=== PATIENT | female | born 1985 | race Caucasian/White ===

== ENCOUNTER 2016-09-15 12:06 | Outpatient (CLI) | payer BC ==
[~2016-09-15] VITALS: Ht 162.6 cm; Wt 99.8 kg
[~2016-09-15 12:06] MED LIST: ACHYD1T PO; DCS100C PO; HYDR-3720 PO; IBP800T PO; PREN1TAB39 PO
[2016-09-15] MEDS ORDERED: PHEN-452 PO (14:00)
[2016-09-15] MEDS ORDERED: DULO30CA48 PO (14:00)
== END 2016-09-15 14:04 ==
LOC: PREOP 12:06
PROVIDERS: ATTEND Surgery
DX: Z01.818 Encounter for other preprocedural examination (principal); K42.9 Umbilical hernia without obstruction or gangrene

== ENCOUNTER 2016-09-22 07:02 | Day surgery (SDC) | payer BC, OTHER ==
[~2016-09-22] VITALS: Ht 162.6 cm; Wt 99.8 kg
[~2016-09-22 07:02] MED LIST changes: +DULO30CA48 PO; +PHEN-452 PO
[2016-09-22] MEDS ORDERED: ceFAZolin 2 GM/NS 50 ML IV ONE (07:15)
[2016-09-22] MEDS ORDERED: LIDOCAINE/EPI 1%-1:100,000 (XYLOCAINE) 20ML ONE (07:25)
[2016-09-22] MEDS ORDERED: MIDAZOLAM 2 MG/2 ML (VERSED) VIAL IV ONE (07:45)
[2016-09-22 08:31] VITALS: BP 136/82
--- NOTE | 2016-09-22 08:38 | Progress Note-Pre Operative ---
Pre-Operative Progress Note H&P Reviewed The H&P was reviewed, patient examined and no changes noted. Date H&P Reviewed: Sep 22, 2016 Time H&P Reviewed: 08:34 Pre-Operative Diagnosis: incarcerated [facility] BELEN VARELA DO Sep 22, 2016 08:38
[2016-09-22] MEDS ORDERED: ROCURONIUM 50 MG/5 ML (ZEMURON) VIAL IV ONE (08:39)
[2016-09-22] MEDS ORDERED: proPOfol 200 MG/20 ML (DIPRIVAN) VIAL IV ONE (08:39)
[2016-09-22] MEDS ORDERED: fentaNYL INJECTION 250 MCG/5 ML AMP ONE (08:39)
[2016-09-22] MEDS ORDERED: DEXAMETHASONE PF 10 MG/ML (DECADRON) VIAL ONE (08:39)
[2016-09-22] MEDS ORDERED: ONDANSETRON 4 MG/2 ML (SDV) Z0FRAN ONE (08:39)
[2016-09-22] MEDS ORDERED: LIDOCAINE PF 2% 10 ML (XYLOCAINE) AMP ONE (08:39)
[2016-09-22] MEDS ORDERED: LACTATED RINGERS 1,000 ML IV ONE ×2 (08:40→10:12)
[2016-09-22] MEDS ORDERED: SEVOFLURANE (ULTANE) 15 ML INHAL SOLN ONE ×4 (08:40→10:12)
[2016-09-22] MEDS: LACTATED RINGERS 1,000 ML IV PRN ×2 (08:52→09:57)
[2016-09-22] MEDS ORDERED: GLYCOPYRROLATE 0.2 MG/ML (ROBINUL) 2 ML VIAL ONE (10:12)
[2016-09-22] MEDS ORDERED: NEOSTIGMINE (BLOXIVERZ ) 1 MG/1ML 10 ML VIAL ONE (10:12)
--- NOTE | 2016-09-22 10:22 | Progress Note-Post Operative ---
Post-Operative Progess Note Surgeon (s)/Mender Hand (s) Surgeon BELEN VARELA DO Mender Hand: Radha Pre-Operative Diagnosis INCARCERATED UMBILICAL HERNIA Post-Operative Diagnosis same Post-Op Procedure Note Date of Procedure: Sep 22, 2016 Name of Procedure Performed: Lap [facility]H with mesh Description of the Procedure: lap [facility] with mesh Findings of the Procedure incarcerated [facility] Anesthesia Type GET Estimated blood loss (mL): scant Specimen(s) collected/removed hernia sac, not sent to pathology BELEN VARELA DO Sep 22, 2016 10:22
[2016-09-22] MEDS ORDERED: HYDR-3820 PO (10:23)
--- NOTE | 2016-09-22 10:25 | Discharge Inst-Surgical ---
Discharge Inst-Surgical Depart Medication/Instructions New, Converted or Re-Newed RX: RX Given to Pt/Family Patient Instructions Follow up Appt: Make appointment for 1 week. [phone] -Instructions: No lifting greater than 10 pounds. No strenuous activity. May shower in 24 hours, no tub bath or soaking. Use incentive spirometer at home as directed. No Smoking Skin/Wound Care: May remove band-aids in am. Symptoms to Report: Appetite Changes, Extremity Discoloration, Numbness/Tingling, Swelling Increased , Bleeding Excessive, Eyesight Changes, Pain Increased, Urine Color Change, Constipation(Persistent), Fever over 101 degree F, Pain/Pressure in chest, Urinating Difficulty, Cough Up/Vomit Blood, Heart Beat -Irreg/Pounding, Pain/ Pressure in jaw, Vaginal Bleeding Increase, Cramps in feet or legs, Lightheadedness, Pain/Pressure in shoulder, Diarrhea(Persistent), Memory Changes Suddenly, Questions/Concerns, Weight gain consecutive days, Dizziness/ Fainting, Nausea/Vomiting, Shortness of Breath, Weight gain over 2 pounds If questions or concerns contact your physician Or seek help at emergency department. Activity Activity as Tolerated: Yes Activity Instructions: Avoid Pulling & Pushing, Avoid Stress to Incision Driving Instructions: No Driving/Refer to Dr. Kirk Discharge Diet: No Restrictions If Any Problems/Questions/Issu: Contact Your Physician, Go to Emergency Room Skin/Wound Care Infection Signs and Symptoms: Increased Redness, Foul Odor of Wound, Increased Drainage, Skin Itchy or Has a Rash, Increased Swelling, Temperature Above 101 F Bathing Instructions: Shower Stitches/[place]/Dermabond Dis: Dermabond Ice Pack: Ice On and Off Site BELEN VARELA DO Sep 22, 2016 10:25
[2016-09-22] MEDS ORDERED: ONDANSETRON 4 MG/2 ML (SDV) Z0FRAN IVP PRN (10:45)
[2016-09-22] MEDS ORDERED: fentaNYL INJECTION 100 MCG/2 ML AMP IVP PRN (10:45)
[2016-09-22] MEDS ORDERED: MEPERIDINE (DEMEROL) INJ 50 MG/ML IVP PRN (10:45)
[2016-09-22] MEDS: morphine INJ 10 MG/ML 1ML (SYR OR VIAL) IVP PRN ×3 (10:50→11:03)
[2016-09-22 11:30] VITALS: BP 132/79
--- NOTE | 2016-09-22 11:56 | OPERATIVE REPORT ---
DATE OF SERVICE: 09/22/2016 DATE OF OPERATION: 09/22/2016 PREOPERATIVE DIAGNOSIS: Incarcerated umbilical hernia. POSTOPERATIVE DIAGNOSIS: Incarcerated umbilical hernia. PROCEDURE PERFORMED: Laparoscopic umbilical herniorrhaphy with mesh placement. SURGEON: Dr. Darren Ly. DIET AID: Dr. Garcia. ANESTHESIA: General endotracheal tube. SPECIMENS: Hernia sac but not sent to pathology. BLOOD LOSS: Scant. FLUIDS: Per anesthesia. POSTOPERATIVE CONDITION: Stable. INDICATION FOR PROCEDURE: The patient is a 30-year-old female who has been having abdominal pain, diagnosed incarcerated umbilical hernia. She also thought she may have some endometriosis. FINDINGS: The patient has incarcerated umbilical hernia. Picture was taken. Looked around the abdomen and looked at the ovaries and the uterus as best as I could. Will leave this to MOSAIC WORKER for any further workup; but I did not see obvious endometriosis, took pictures. DESCRIPTION OF PROCEDURE: After informed consent was obtained, the patient was brought to the operating room, placed on the table in the supine position. She was sterilely prepped and draped in the normal fashion. Local lidocaine used to infiltrate the skin in the left upper quadrant. I made incision with a #11 blade, carried down through skin and subcutaneous tissue, then deep down to subcutaneous tissue with Bovie electrocautery, down to the fascia. Fascia incised with Bovie electrocautery. Then spread the muscle apart with S retractors, down into the posterior fascia and then grasped with a hemostat and cut with Bovie electrocautery, then entered bluntly into the abdomen. Placed an 11 mm trocar port in that position and then created pneumoperitoneum. Then placed 2 more ports in a normal fashion using local lidocaine, an 11 blade for stab incision and VersaStep system all done under direct visualization, one in the left lower quadrant and one in the right mid abdomen almost equal to the umbilicus but out to the side. Able to visualize, took a picture of fat going into the small umbilical hernia. Using LigaSure, grasping this fat and pulling this away and then clamping, coagulating and transecting and then going through this and able to pull the fat out of the umbilical hernia. This was an incarcerated umbilical hernia. Then removed this through the left upper quadrant port. Looked around the abdomen, did not see any obvious brown spots or endometrial implants. Lifted the ovaries and the uterus, again did not see anything but will leave this to MOSAIC WORKER for full visualization. I did not see anything obvious. Placed a 4-1/2 inch mesh into the abdomen with the balloon, made a small stab incision above the umbilicus and then using a Valentine-Jose Manuel, grasped the balloon catheter, pulled this up and then inflated the balloon to hold the mesh in place. Then using the secure strap, tacked it at the 9 o'clock, 12 o'clock, 3 o'clock and 6 o'clock positions and in-between at 1 cm margins and then also in the middle as an inner layer. Mesh looked good. Allowed some pneumoperitoneum to escape. Again, I took a picture. Mesh, again, looked good, did not really have any wrinkles. At this point, I removed all ports under direct visualization and allowed the pneumoperitoneum to escape. Closed the left upper quadrant incision, closed the posterior portion with 3-0 Vicryl [id number]-ln-ptdjb sutured, then closed the anterior portion with 3-0 Vicryl gwbrqw-uo-ggtmy suture. Copiously irrigated all incisions, then closed the 2 small 5 mm incision with a single interrupted 4-0 nylon interrupted subcuticular stitch. Then closed the left upper quadrant incision with 3 interrupted 4-0 nylon interrupted subcuticular stitches. The area was cleaned and dried. Dermabond placed as well as band-aids. The patient was then transferred to the recovery room in stable condition. Sponge, instrument and needle counts correct at the end of the case. Dr. Garcia assisted in placing ports, holding retraction. He then closed the skin. He also helped identify anatomy and with visualization. Job ID: [id number] DocumentID: [id number] Dictated Date: 09/22/2016 10:34:06 Photolettering Machine Operator Date: 09/22/2016 11:55:53 Dictated By: DO VIK CUEVAS
[2016-09-22 12:00] VITALS: BP 130/79
[2016-09-22 12:30] VITALS: BP 128/80
== END 2016-09-22 12:45 | disposition home or self-care (01) ==
LOC: SDC 07:02
PROVIDERS: ATTEND Surgery
DX: K42.0 Umbilical hernia with obstruction, without gangrene (principal); Z11.2 Encounter for screening for other bacterial diseases
CPT/HCPCS: 36415; 84703; 87081

== ENCOUNTER → 2018-09-10 | Outpatient (CLI) | payer BC, OTHER ==
[~2018-09-10] MED LIST changes: +HYDR-3820 PO; -PHEN-452 PO; +PHEN30CA2 PO
--- NOTE | 2018-09-10 13:47 | Diagnostic Imaging Report ---
PROCEDURE: US Gallbladder. TECHNIQUE: Multiple real-time grayscale images were obtained over the right upper quadrant in various projections. INDICATION: Bloating, gas and diarrhea. FINDINGS: The liver measures 24 cm. Its echotexture however is homogeneous and normal. No appreciable shadowing stone in the gallbladder. There are some non-shadowing echogenic foci along its wall measuring maximal 3 mm believed to be small polyps. There is some "ring down" artifact along the anterior wall of the gallbladder likely owing to mild adenomyomatosis. The gallbladder is non-thickened and there is negative Rizzo's sign. No pericholecystic fluid. No intraluminal sludge or stone. The gallbladder is nondilated. The biliary duct is nondistended. Pancreas is largely obscured by gas. The unobstructed right kidney appears normal. IMPRESSION: 1. Nonfocal mild hepatomegaly. 2. Probable small polyps along the gallbladder wall with mild gallbladder adenomyomatosis. However, no sludge, stone, or evidence for acute cholecystitis and there is no pathological distention of the biliary ducts. Dictated by: Dictated on workstation # [id number]
== END ==
LOC: RAD 08:13
PROVIDERS: ATTEND Family Medicine
DX: K82.8 Other specified diseases of gallbladder (principal); R14.0 Abdominal distension (gaseous); R19.7 Diarrhea, unspecified; R16.0 Hepatomegaly, not elsewhere classified
CPT/HCPCS: 76705

== ENCOUNTER → 2018-10-01 | Outpatient (CLI) | payer OTHER ==
[~2018-10-01] MED LIST changes: +CATHETER FLUSH 10 ML SYR IV PRN
--- NOTE | 2018-10-01 11:57 | Diagnostic Imaging Report ---
CLINICAL INDICATION: Patient with gas and bloating. COMPARISON: Gallbladder ultrasound dated 09/10/2018. PROCEDURE: The patient was administered 5.43 millicuries of technetium 99m Choletec. After 60 minutes of the images, one can of Ensure was drink followed by another 60 minutes of imaging. A nuclear medicine hepatobiliary scan with ejection fraction was performed. FINDINGS: There is prompt uptake and excretion of radiotracer by the liver. Activity is visible in the gallbladder by 20 minutes and the small bowel by 10 minutes. Ejection fraction of the gallbladder is calculated at 84% (normal >33%). The gallbladder visibly empties on the scans following the ingestion of Ensure. IMPRESSION: Normal hepatobiliary scan with normal gallbladder ejection fraction. Dictated by: Dictated on workstation # [id number]
== END ==
LOC: CARD 08:52
PROVIDERS: ATTEND Family Medicine
DX: K82.4 Cholesterolosis of gallbladder (principal); R19.7 Diarrhea, unspecified; R14.0 Abdominal distension (gaseous); R14.3 Flatulence
CPT/HCPCS: 78227

== ENCOUNTER 2019-01-07 13:51 | Outpatient (CLI) | payer OTHER ==
[~2019-01-07 13:51] MED LIST changes: -CATHETER FLUSH 10 ML SYR IV PRN; -DULO30CA48 PO; +DULO30CA49 PO
== END 2019-01-07 14:20 | disposition home or self-care (01) ==
LOC: RAD 13:51
PROVIDERS: ATTEND Otolaryngology Otolaryngology/Facial Plastic Surgery
DX: G47.33 Obstructive sleep apnea (adult) (pediatric) (principal)

== ENCOUNTER 2019-04-07 05:29 | Outpatient (CLI) | payer OTHER ==
[~2019-04-07] VITALS: Ht 162 cm; Wt 133.0 kg
[2019-04-07] MEDS ORDERED: MULT-178 PO (14:29)
[2019-04-13] MEDS ORDERED: ACHD5005 PO (09:32)
== END 2019-04-07 15:03 | disposition home or self-care (01) ==
LOC: PREOP 05:29
PROVIDERS: ATTEND Surgery
DX: Z01.818 Encounter for other preprocedural examination (principal)

== ENCOUNTER 2019-04-13 07:49 | Day surgery (SDC) | payer OTHER ==
[2019-04-13] VITALS (11 sets, daily range): BP systolic 126–150; BP diastolic 66–103
[~2019-04-13] VITALS: Ht 162.6 cm; Wt 133.0 kg
[~2019-04-13 07:49] MED LIST changes: +MULT-178 PO
[2019-04-13] MEDS ORDERED: BUP/EPI 0.5% 1:200,000 (SENSORCAINE) 30 ML VIAL ONE (07:55)
[2019-04-13] MEDS ORDERED: IOPAMIDOL 61% 30 ML (ISOVUE 300) VIAL IV ONE (07:55)
[2019-04-13] MEDS ORDERED: proPOfol 200 MG/20 ML (DIPRIVAN) VIAL IV ONE (08:11)
[2019-04-13] MEDS ORDERED: ONDANSETRON 4 MG/2 ML (SDV) Z0FRAN ONE (08:11)
[2019-04-13] MEDS ORDERED: DEXAMETHASONE 10 MG/ML (DECADRON) 1 ML VIAL ONE (08:11)
[2019-04-13] MEDS ORDERED: ROCURONIUM 10 MG/ML 5 ML SYRINGE IV ONE ×2 (08:11→08:59)
[2019-04-13] MEDS ORDERED: SEVOFLURANE (ULTANE) 15 ML INHAL SOLN ONE ×5 (08:11→09:20)
[2019-04-13] MEDS ORDERED: LIDOCAINE PF 2% 5 ML (XYLOCAINE) VIAL ONE (08:11)
[2019-04-13] MEDS ORDERED: MIDAZOLAM 2 MG/2 ML (VERSED) VIAL ONE (08:12)
[2019-04-13] MEDS ORDERED: fentaNYL INJECTION 100 MCG/2 ML AMP ONE (08:12)
--- NOTE | 2019-04-13 08:14 | Progress Note-Pre Operative ---
Pre-Operative Progress Note H&P Reviewed The H&P was reviewed, patient examined and no changes noted. Time Seen by Provider: 08:05 Date H&P Reviewed: Apr 13, 2019 Time H&P Reviewed: 08:06 Pre-Operative Diagnosis: Biliary Dyskinesia BELEN VARELA DO Apr 13, 2019 08:14 POS
[2019-04-13] MEDS ORDERED: ceFAZolin 2 GM IV Premixed 50 ML IV ONE (08:15)
[2019-04-13] MEDS: LACTATED RINGERS 1,000 ML IV PRN ×2 (08:26→09:27)
[2019-04-13 08:30] LABS: BASOPHILS % (AUTO) 1 % (0-10); EOSINOPHILS # (AUTO) 0.1 10^3/uL (0.0-0.3); EOSINOPHILS % (AUTO) 1 % (0-10); HEMATOCRIT 36 % (35-52); LYMPHOCYTES # (AUTO) 1.8 X 10^3 (1.0-4.0); LYMPHOCYTES % (AUTO) 24 % (12-44); MEAN CORPUSCULAR HEMOGLOBIN 22 PG (25-34); MEAN CORPUSCULAR HGB CONC 30 G/DL (32-36); MEAN CORPUSCULAR VOLUME 73 FL (80-99); MEAN PLATELET VOLUME 10.6 FL (7.4-10.4); MONOCYTES # (AUTO) 0.5 X 10^3 (0.0-1.0); MONOCYTES % (AUTO) 7 % (0-12); NEUTROPHILS % (AUTO) 68 % (42-75); PLATELET COUNT 257 10^3/uL (130-400); RED CELL DISTRIBUTION WIDTH 16.6 % (10.0-14.5); WHITE BLOOD COUNT 7.5 10^3/uL (4.3-11.0)
[2019-04-13] MEDS ORDERED: HYDROmorphone 2 MG/ML VIAL (DILAUDID) ONE (08:48)
[2019-04-13] MEDS ORDERED: NEOSTIGMINE 3 MG/3 ML VIAL ONE (09:07)
[2019-04-13] MEDS ORDERED: GLYCOPYRROLATE 0.2 MG/ML (ROBINUL) 2 ML VIAL ONE (09:07)
[2019-04-13] MEDS ORDERED: ESMOLOL 100 MG/10 ML (BREVIBLOC) VIAL ONE (09:11)
[2019-04-13] MEDS ORDERED: KETOROLAC 30 MG/ML VIAL ONE (09:24)
--- NOTE | 2019-04-13 09:31 | Progress Note-Post Operative ---
Post-Operative Progess Note Surgeon (s)/Psychology Associate (s) Surgeon BELEN VARELA DO Psychology Associate: Radha Pre-Operative Diagnosis Biliary Dyskinesia Post-Operative Diagnosis Same plus adhesions Procedure & Operative Findings Date of Procedure 04/13/19 Procedure Performed/Findings Lap [facility]ie with IOC Anesthesia Type GET Estimated Blood Loss Estimated blood loss (mL): scant Specimens/Packing Specimens Removed GB and contents BELEN VARELA DO Apr 13, 2019 09:31 POS
[2019-04-13] MEDS ORDERED: ACHD5005 PO (09:32)
--- NOTE | 2019-04-13 09:33 | Discharge Inst-Surgical ---
Discharge Inst-Surgical Reconcile Patient Problems Problems Reviewed?: Yes Depart Medication/Instructions New, Converted or Re-Newed RX: RX Given to Pt/Family Patient Instructions Follow up Appt: Make appointment for 1 week. [phone] Instructions: No lifting greater than 20 pounds. No strenuous activity. May shower in 24 hours, no tub bath or soaking. Use incentive spirometer at home as directed. No Smoking Skin/Wound Care: May remove bandages in am. You need to leave the Dermabond on incision it will fall off on it's own. Symptoms to Report: Appetite Changes, Extremity Discoloration, Numbness/Tingling, Swelling Increased, Bleeding Excessive, Eyesight Changes, Pain Increased, Urine Color Change, Constipation(Persistent), Fever over 101 degree F, Pain/Pressure in chest, Urinating Difficulty, Cough Up/Vomit Blood, Heart Beat Irreg/Pounding, Pain/Pressure in jaw, Cramps in feet or legs, Lightheadedness, Pain/Pressure in shoulder, Diarrhea(Persistent), Memory Changes Suddenly, Questions/Concerns, Weight gain consecutive days, Dizziness/Fainting, Nausea/Vomiting, Shortness of Breath, Weight gain over 2 pounds If questions or concerns contact your physician Or seek help at emergency department. Activity Activity Instructions: Avoid Stress to Incision Driving Instructions: No Driving/Refer to Diet Discharge Diet: Avoid Fatty Foods, Low Fat/Low Cholesterol Diet After 24 Hours: Clear Liquid if Nauseous If Any Problems/Questions/Issu: Contact Your Physician, Go to Emergency Room Skin/Wound Care Infection Signs and Symptoms: Increased Redness, Foul Odor of Wound, Increased Drainage, Skin Itchy or Has a Rash, Increased Swelling, Temperature Above 101 F Wound Care Comment: Heating pad to shoulder or neck tonight for pain Bathing Instructions: Shower Stitches/Charlie/Dermabond Dis: Dermabond Ice Pack: Ice On and Off Site (at incisions for pain) BELEN VARELA DO Apr 13, 2019 09:33 POS
[2019-04-13] MEDS ORDERED: ONDANSETRON 4 MG/2 ML (SDV) Z0FRAN IVP PRN (10:00)
[2019-04-13] MEDS ORDERED: HYDROmorphone 2 MG/ML VIAL (DILAUDID) IV ONE (10:00)
--- NOTE | 2019-04-13 11:03 | Diagnostic Imaging Report ---
EXAMINATION: Fluoroscopy. INDICATION: Abdominal pain. TECHNIQUE: Fluoroscopic assistance was provided for Dr. Ly during his laparoscopic cholecystectomy procedure. 8.0 seconds of fluoroscopy time was utilized. FINDINGS: 34 spot films of the right upper quadrant were obtained. There has been opacification of the common bile duct via a cystic duct catheter. The duct, where visualized, shows no defect that would indicate a retained calculus. The distal most portion of the duct, however, is not well opacified. There is evidence of extension of the contrast into the small bowel. IMPRESSION: Fluoroscopic assistance was provided for Dr. Ly. Dictated by: Dictated on workstation # [id number]
--- NOTE | 2019-04-13 13:48 | OPERATIVE REPORT ---
DATE OF SERVICE: PREOPERATIVE DIAGNOSIS: Biliary dyskinesia. POSTOPERATIVE DIAGNOSES: 1. Biliary dyskinesia. 2. Adhesions. PROCEDURE: Laparoscopic cholecystectomy, intraoperative cholangiogram. SURGEON: Darren Ly DO. AUTOMATIC PATTERN EDGER: Howard Garcia DO. ANESTHESIA: General endotracheal tube. SPECIMEN: Gallbladder and contents. BLOOD LOSS: Scant. FLUIDS: Per anesthesia. POSTOPERATIVE CONDITION: Stable. INDICATION FOR PROCEDURE: The patient is a 33-year-old female, who has been having right upper quadrant abdominal pain associated with fried and fatty foods and had a HIDA scan, which showed biliary dyskinesia. FINDINGS: The patient had adhesions to the gallbladder. This usually indicates previous gallbladder attacks. She also had adhesions from the previous umbilical hernia repair. PROCEDURE NOTE: After informed consent was obtained, the patient was brought to the operating room, placed on the table in supine position. She was sterilely prepped and draped in normal fashion. Local lidocaine was used to infiltrate the skin above the umbilicus approximately 8 cm, infiltrated the skin with local, then made an incision with #11 blade, carried down through the skin into subcutaneous tissue, deepened down to subcutaneous tissue with Bovie electrocautery down to the fascia. Fascia incised with Bovie electrocautery, bluntly entered the abdomen, swept a finger around, placed 0 Vicryl vwlchi-wk-tjxfs suture, then placed a limited trocar port under direct visualization. Created pneumoperitoneum and then placed 3 more ports in normal fashion using local lidocaine, 11 blade for stab incision and VersaStep system, all done under direct visualization. A lot of adhesions to the liver and gallbladder had to take them down off the gallbladder then grasped the gallbladder at the fundus and then start taking more these adhesions down to be able to finally freed up and able to grasp down Orville's pouch and pulled in inferolateral direction and take the fundus superiorly and start dissecting out cystic duct and cystic artery, able to get around the cystic duct and cystic artery and placed clips around the cystic artery two distally and one proximally and then one proximally on the cystic duct. Cut the cystic duct senior living through Metzenbaum scissors. Placed a cholangiogram catheter and shot a cholangiogram. Good spillage of dye down the cystic duct into the common bile duct and down in the small intestine as well as up into common hepatic and right and left hepatics, then removed the cholangiogram catheter, placed 2 clips proximally on the cystic duct and then cut the cystic duct and cystic artery with Metzenbaum scissors. Removed the gallbladder from the liver with L-hook cautery. Once this was completely removed, placed a bag in the abdomen, placed the gallbladder in a bag and then removed this through the supraumbilical incision. Placed the port back in copiously irrigated with normal saline. No bleeding from the bed of liver suctioned this fluid out and then the patient had been reverse Trendelenburg and rotated left. She was then placed supine and then removed all ports under direct visualization, the pneumoperitoneum to escape, closed supraumbilical incision, closing the fascia with 0 Vicryl suture previously placed. Copiously irrigated all incisions normal saline, closing 3 small 5 mm incisions with a single interrupted 4-0 undyed Monocryl subcuticular stitch, closed supraumbilical incision with 3 interrupted 4-0 undyed Monocryl subcuticular stitches. Area was cleaned and dried. Dermabond placed as well as Band-Aids. The patient tolerated the procedure. Sponge, instrument and needle count correct at the end of the case. Dr. Garcia assisted in this case helping to make incisions, close incisions, identify anatomy and hold anatomy out of the way. Job ID: [id number] DocumentID: [id number] Dictated Date: 04/13/2019 09:30:44 Childcare Administrator Date: 04/13/2019 13:48:21 Dictated By: DO VIK CUEVAS
--- NOTE | 2019-04-13 14:35 | Anesthesia-General Post-Op ---
General Patient Condition Mental Status/LOC: Same as Preop Cardiovascular: Satisfactory Nausea/Vomiting: Absent Respiratory: Satisfactory Pain: Controlled Complications: Absent Post Op Complications Complications None Follow Up Care/Instructions Patient Instructions None needed. Anesthesia/Patient Condition Patient Condition Patient was seen after the procedure and she was doing well, no complaints, stable vital signs, no apparent adverse anesthesia problems. JOHNNA LOFTON CRNA Apr 13, 2019 14:35 POS
== END 2019-04-13 12:00 | disposition home or self-care (01) ==
LOC: SDC 07:49
PROVIDERS: ATTEND Surgery
DX: K81.1 Chronic cholecystitis (principal); K82.8 Other specified diseases of gallbladder; K66.0 Peritoneal adhesions (postprocedural) (postinfection); E66.9 Obesity, unspecified; Z68.43 Body mass index [BMI] 50.0-59.9, adult; G47.33 Obstructive sleep apnea (adult) (pediatric); F32.9 Major depressive disorder, single episode, unspecified; F41.9 Anxiety disorder, unspecified; Z79.899 Other long term (current) drug therapy; Z88.2 Allergy status to sulfonamides; Z91.030 Bee allergy status; Z80.9 Family history of malignant neoplasm, unspecified
CPT/HCPCS: 36415; 84703; 85025; 87081; 88304; 94664

== ENCOUNTER 2019-08-12 12:58 | Outpatient (RCR) | payer OTHER ==
[2019-08-05] MEDS: FERRIC CARBOXYMALTOSE INJ 750 MG in NS (IVPB) 250 ML IV SCH (13:40)
[2019-08-05 14:40] VITALS: BP 143/101
[~2019-08-12] VITALS: Ht 162.6 cm; Wt 133.0 kg
[~2019-08-12 12:58] MED LIST changes: +ACHD5005 PO; -HYDR-3820 PO
[2019-08-12] MEDS: FERRIC CARBOXYMALTOSE INJ 750 MG in NS (IVPB) 250 ML IV SCH (13:15)
[2019-08-12 13:41] VITALS: BP 125/81
== END 2019-08-12 13:41 | disposition home or self-care (01) ==
LOC: SDC 12:58
PROVIDERS: ATTEND Family Medicine
DX: D50.9 Iron deficiency anemia, unspecified (principal)
CPT/HCPCS: 96365

== ENCOUNTER → 2020-05-11 | Outpatient (CLI) | payer OTHER ==
--- NOTE | 2020-05-11 11:24 | Diagnostic Imaging Report ---
EXAMINATION: Magnetic resonance imaging of the right knee without intravenous contrast DATE: May 11, 2020. COMPARISON: None. INDICATION: 34-year-old female, right knee pain. TECHNIQUE: Multiplanar, multisequence non contrast enhanced MR imaging was accomplished. FINDINGS: MENISCI: The medial meniscus is intact. The lateral meniscus is intact. LIGAMENTS AND TENDONS: The anterior and posterior cruciate ligaments are intact. The medial collateral ligament is intact. The iliotibial band, mid third lateral capsular ligament, fibular collateral ligament, biceps femoris tendon and conjoined tendon are intact. The quadriceps tendon and patella ligament are intact. JOINT: The articular cartilage surfaces are intact. There is a small knee joint effusion without prominent synovitis or identified intra-articular body. BONE: There is unremarkable bone marrow signal. Specifically, negative for fracture, osteomyelitis, osteonecrosis, or marrow replacing process. BURSAE AND SOFT TISSUES: No Bakers cyst. IMPRESSION: 1. Small knee joint effusion. The articular cartilage is grossly intact. No prominent synovitis or identified intra-articular body. 2. Intact menisci and cruciate ligaments. Additional ligaments and tendons are also intact. 3. No acute fracture, bone contusion, or other bone marrow signal abnormality. Dictated by: Dictated on workstation # [id number]
== END ==
LOC: RAD 09:30
PROVIDERS: ATTEND Family Medicine
DX: M25.461 Effusion, right knee (principal); M25.561 Pain in right knee
CPT/HCPCS: 73721

== ENCOUNTER 2020-05-25 09:48 | Outpatient (RCR) | payer OTHER | END 2020-05-25 14:50 | disposition home or self-care (01) | PROVIDERS: ATTEND Family Medicine | DX: M54.5 Low back pain (principal); M25.511 Pain in right shoulder ==

== ENCOUNTER → 2020-08-24 | Outpatient (CLI) | payer OTHER ==
--- NOTE | 2020-08-24 12:02 | Diagnostic Imaging Report ---
PROCEDURE: US Non-ob pelvis comp/trans. TECHNIQUE: Multiple realtime grayscale images were obtained of the pelvis in various projections endovaginally. Transabdominal imaging was also performed. INDICATION: AUB. FINDINGS: The uterus measures 10.1 x 6.0 x 7.5 cm. No fibroid or myometrial mass. The endometrium is thickened at 1.8 cm. There is no evidence for adnexal torsion. The right ovary contains a simple 2.4 cm cyst, the left ovary a simple 1.7 cm cyst likely follicles. No pathological-appearing solid or cystic adnexal lesion. No free fluid. IMPRESSION: No adnexal torsion, physiologic appearing ovarian cyst, thickened endometrium at 1.8 cm with no fibroid or myometrial mass. Dictated by: Dictated on workstation # [id number]
== END ==
LOC: RAD 09:41
PROVIDERS: ATTEND Obstetrics & Gynecology
DX: R93.89 Abnormal findings on diagnostic imaging of other specified body structures (principal); N93.9 Abnormal uterine and vaginal bleeding, unspecified
CPT/HCPCS: 76830; 76856

== ENCOUNTER 2020-10-26 06:12 | Outpatient (RCR) | payer OTHER ==
[~2020-10-26] VITALS: Ht 162.6 cm; Wt 144.3 kg
[~2020-10-26 06:12] MED LIST changes: +CHOL200059 PO; +FERR-84 PO; +MTP25TSR PO; +OMEP20CA18 PO
[2020-10-29] MEDS ORDERED: ACHD5005 PO (09:41)
== END 2020-10-26 12:37 | disposition home or self-care (01) ==
LOC: PREOP 06:12
PROVIDERS: ATTEND Surgery
DX: Z01.812 Encounter for preprocedural laboratory examination (principal); K43.2 Incisional hernia without obstruction or gangrene; K29.70 Gastritis, unspecified, without bleeding; Z20.822 Contact with and (suspected) exposure to COVID-19
CPT/HCPCS: 87635

== ENCOUNTER 2020-10-29 07:00 | Day surgery (SDC) | payer OTHER ==
[2020-10-29] VITALS (10 sets, daily range): BP systolic 131–148; BP diastolic 70–105
[~2020-10-29] VITALS: Ht 162.6 cm; Wt 144.3 kg
[2020-10-29] MEDS ORDERED: ceFAZolin 2 GM IV Premixed 50 ML IV ONE (07:15)
[2020-10-29] MEDS ORDERED: fentaNYL INJ 100 MCG/2 ML AMP ONE ×2 (07:15→09:15)
[2020-10-29] MEDS ORDERED: MIDAZOLAM 2 MG/2 ML (VERSED) VIAL ONE (07:15)
[2020-10-29] MEDS ORDERED: LIDOCAINE/EPI 1%-1:100,000 (XYLOCAINE) 20ML ONE (07:36)
[2020-10-29 07:55] LABS: BASOPHILS # (AUTO) 0.1 10^3/uL (0.0-0.1); BASOPHILS % (AUTO) 1 % (0-10); EOSINOPHILS # (AUTO) 0.1 10^3/uL (0.0-0.3); EOSINOPHILS % (AUTO) 1 % (0-10); HEMATOCRIT 40 % (35-52); HEMOGLOBIN 12.3 g/dL (11.5-16.0); LYMPHOCYTES % (AUTO) 22 % (12-44); MEAN CORPUSCULAR HEMOGLOBIN 26 pg (25-34); MEAN CORPUSCULAR HGB CONC 31 g/dL (32-36); MEAN CORPUSCULAR VOLUME 82 fL (80-99); MEAN PLATELET VOLUME 10.5 fL (9.0-12.2); MONOCYTES # (AUTO) 0.6 10^3/uL (0.0-1.0); MONOCYTES % (AUTO) 6 % (0-12); NEUTROPHILS # (AUTO) 6.5 10^3/uL (1.8-7.8); NEUTROPHILS % (AUTO) 71 % (42-75); PLATELET COUNT 243 10^3/uL (130-400); WHITE BLOOD COUNT 9.3 10^3/uL (4.3-11.0)
[2020-10-29] MEDS: LACTATED RINGERS 1,000 ML IV PRN ×2 (08:25→09:20)
[2020-10-29] MEDS ORDERED: LIDOCAINE PF 2% 5 ML (XYLOCAINE) VIAL ONE (08:30)
[2020-10-29] MEDS ORDERED: proPOfol 200 MG/20 ML (DIPRIVAN) VIAL IV ONE (08:30)
[2020-10-29] MEDS ORDERED: ROCURONIUM 10 MG/ML 5 ML SYRINGE IV ONE (08:30)
[2020-10-29] MEDS ORDERED: SEVOFLURANE (ULTANE) 15 ML INHAL SOLN ONE ×6 (08:30→09:24)
[2020-10-29] MEDS ORDERED: ONDANSETRON 4 MG/2 ML (SDV) Z0FRAN ONE (08:30)
[2020-10-29] MEDS ORDERED: GLYCOPYRROLATE 0.2 MG/ML (ROBINUL) 2 ML VIAL ONE (09:16)
[2020-10-29] MEDS ORDERED: NEOSTIGMINE 3 MG/3 ML VIAL ONE (09:16)
[2020-10-29] MEDS ORDERED: KETOROLAC 30 MG/ML VIAL ONE (09:18)
--- NOTE | 2020-10-29 09:40 | Progress Note-Post Operative ---
Post-Operative Progess Note Surgeon (s)/Carburetor Repairer (s) Surgeon BELEN VARELA DO Carburetor Repairer: Radha Pre-Operative Diagnosis INCISIONAL HERNIA, GASTRITIS,CPP Post-Operative Diagnosis Same incarcerated Procedure & Operative Findings Date of Procedure 10/29/20 Procedure Performed/Findings PROCEDURE: Laparoscopic [incisional/ventral] hernia repair with mesh. COMPLICATIONS: None. INDICATIONS: The patient is a 35, female with an incarcerated incisional hernia, which has continued to increase in size and cause discomfort. The patient was explained the risk and benefits of the procedure and wished to proceed with the procedure. Consent was signed on the chart. DESCRIPTION OF PROCEDURE: The patient was taken into the operating suite, prepped and draped in sterile fashion. Surgical pause was performed. Local anesthetic was infiltrated in left upper quadrant. A #11 blade scalpel was used to make a small skin incision. Cautery was used to dissect down to the fascia, which was then scored and divided the muscle, went through the posterior sheath and a balloon trocar was inserted into the abdomen. The abdomen was then insufflated. Omentum was stuck up to the abdominal wall and once taken down found incarcerated incisional h ernia.] We could also see the old mesh (from umbilical repair) still in place. A 5 mm trocar was placed in the right lower quadrant and a 5 mm trocar was placed in left lower quadrant. [.Echo Ventralight mesh was then inserted in the abdomen grabbed through the stab incision. The balloon was inflated on the mesh. Circumferential tacks were placed with a SecureStrap Tacker. The balloon was then removed and inner crown was created as well. The mesh was tacked with pressure being decreased. The 12 mm fascial defect was then closed using 0 Vicryl figure of 8. The abdomen was then desufflated,the trocars were removed. The skin was then closed using 4-0 Monocryl in a running subcuticular fashion. The abdomen was washed and dried and Skin Affix was placed over the incisions. The patient tolerated procedure well without any complications. She was taken to recovery room in stable condition. Dr. Garcia assisted on this case helping to make incisions, close incisions, identify anatomy and hold anatomy out of the way. Anesthesia Type GET Estimated Blood Loss Estimated blood loss (mL): scant Specimens/Packing Specimens Removed none BELEN VARELA DO October 29, 2020 09:40
[2020-10-29] MEDS ORDERED: ACHD5005 PO (09:41)
--- NOTE | 2020-10-29 09:42 | Discharge Inst-Surgical ---
Discharge Inst-Surgical Depart Medication/Instructions New, Converted or Re-Newed RX: RX Given to Pt/Family Patient Instructions Follow up Appt: Make appointment for 1 week. [phone] Instructions: No lifting greater than 20 pounds. No strenuous activity. May shower in 24 hours, no tub bath or soaking. Use incentive spirometer at home as directed. No Smoking Skin/Wound Care: May remove bandages in am. You need to leave the Dermabond on incision it will fall off on it's own. Symptoms to Report: Appetite Changes, Extremity Discoloration, Numbness/Tingling, Swelling Increased, Bleeding Excessive, Eyesight Changes, Pain Increased, Urine Color Change, Constipation(Persistent), Fever over 101 degree F, Pain/Pressure in chest, Urinating Difficulty, Cough Up/Vomit Blood, Heart Beat Irreg/Pounding, Pain/Pressure in jaw, Cramps in feet or legs, Lightheadedness, Pain/Pressure in shoulder, Diarrhea(Persistent), Memory Changes Suddenly, Questions/Concerns, Weight gain consecutive days, Dizziness/Fainting, Nausea/Vomiting, Shortness of Breath, Weight gain over 2 pounds If questions or concerns contact your physician Or seek help at emergency department. Activity Activity as Tolerated: Yes Activity Instructions: Avoid Stress to Incision Driving Instructions: No Driving/Refer to Dr. Kirk Discharge Diet: No Restrictions Diet After 24 Hours: Clear Liquid if Nauseous If Any Problems/Questions/Issu: Contact Your Physician, Go to Emergency Room Skin/Wound Care Infection Signs and Symptoms: Increased Redness, Foul Odor of Wound, Increased Drainage, Skin Itchy or Has a Rash, Temperature Above 101 F Wound Care Comment: heating pad to shoulder or neck tonight for pain Bathing Instructions: Shower Stitches/[place]/Dermabond Dis: Dermabond Ice Pack: Ice On and Off Site BELEN VARELA DO October 29, 2020 09:42
--- NOTE | 2020-10-29 09:42 | Endoscopy Discharge Instruct ---
Endo Procedure/Findings Findings 1.: Gastritis 2.: Other Findings (Esophagitis) 3.: Hiatal Hernia (very small) Discharge Instructions - Activity: You might feel a little sleepy until tomorrow. This is due to the medicine you received to relax you. Until tomorrow, you should: NOT drive a car, operate machinery or power tools. NOT drink any alcoholic beverages. NOT make any important decisions or sign importortant papers. Do not return to work until tomorrow, unless otherwise instructed. Resume previous activities tomorrow. Diet: Start by taking liquids. If you tolerate liquids, advance to solid food. 1.: EGD in 3 years Notify Physician - If you experience excessive bleeding, unusual abdominal pain, fever, or chest pain, contact your doctor immediately. BELEN VARELA DO October 29, 2020 09:42
[2020-10-29] MEDS ORDERED: ONDANSETRON 4 MG/2 ML (SDV) Z0FRAN IVP PRN (10:00)
[2020-10-29] MEDS ORDERED: HYDROmorphone 2 MG/ML VIAL (DILAUDID) IV ONE (10:00)
[2020-10-29] MEDS ORDERED: morphine INJ 10 MG/ML 1ML (SYR OR VIAL) IVP ONE (10:00)
[2020-10-29] MEDS ORDERED: HYDROcodone/APAP 5 MG/325 MG (LORTAB) TAB PO ONE (11:00)
--- NOTE | 2020-10-29 12:06 | Progress Note-Post Operative ---
Post-Operative Progess Note Surgeon (s)/Football Pad Repairer (s) Surgeon BELEN VARELA DO Football Pad Repairer: none Pre-Operative Diagnosis GASTRITIS Post-Operative Diagnosis Gastritis Esophagitis ??small hiatal hernia Procedure & Operative Findings Date of Procedure 10/29/20 Procedure Performed/Findings PROCEDURE NOTE: After informed consent was obtained, the patient was in the OR for her hernia surgery; already intubated. The scope was inserted down the mouth through the esophagus into the stomach. On the way down, noted some mild esophagitis, took a picture, pushed into the stomach, pushed past the antrum into the duodenum. Duodenum looked good. Pulled back and did a biopsy of antrum, then retroflexed the scope, saw small hiatal hernia, took a picture of this and then pulled the scope into the GE junction, took another picture of the hiatal hernia and then did a biopsy of the GE junction. Pushed the scope back into the stomach, suctioned all the air out of the stomach and then pulled the scope up the esophagus, took some pictures in the esophagus. At this point pulled the scope up the esophagus and out the mouth. The patient tolerated the procedure, and she recovered in endoscopy suite. Anesthesia Type GET Estimated Blood Loss Estimated blood loss (mL): scant Specimens/Packing Specimens Removed antral bx GE jxn bx BELEN VARELA DO October 29, 2020 12:06
--- NOTE | 2020-10-29 12:37 | Anesthesia-General Post-Op ---
General Patient Condition Mental Status/LOC: Same as Preop Cardiovascular: Satisfactory Nausea/Vomiting: Absent Respiratory: Satisfactory Pain: Controlled Complications: Absent Post Op Complications Complications None Follow Up Care/Instructions Patient Instructions None needed. Anesthesia/Patient Condition Patient Condition Patient is doing well, no complaints, stable vital signs, no apparent adverse anesthesia problems. No complications reported per nursing. YASMIN WHITE CRNA October 29, 2020 12:37
--- NOTE | 2020-10-30 11:12 | OPERATIVE REPORT ---
DATE OF SERVICE: PREOPERATIVE DIAGNOSIS: Chronic pelvic pain. This was an intraoperative consultation during the surgery of Dr. Ly for an inguinal incisional hernia repair. Upon entering the room, Dr. Ly had already obtained peritoneal access and was taking down adhesions to the anterior abdominal wall and reducing the hernia out of the hernia sac from a peritoneal approach. After this was done, they were able to put the patient in steep Trendelenburg. A brief, but thorough scan of the pelvic anatomy appeared to be grossly normal. The serosal surfaces were without any signs of endometriosis. The bilateral ovaries were inspected with the exception of a couple of paratubal cysts. There was no gross abnormality noted. At that point, my portion of the procedure was complete and Dr. Ly continued with his hernia repair. Job ID: [id number] DocumentID: [id number] Dictated Date: 10/30/2020 08:42:43 Catalytic Converter Operator Helper Date: 10/30/2020 11:12:18 Dictated By: ANNETTE LIU DO
== END 2020-10-29 12:20 | disposition home or self-care (01) ==
LOC: SDC 07:00
PROVIDERS: ATTEND Surgery
DX: K29.50 Unspecified chronic gastritis without bleeding (principal); K43.2 Incisional hernia without obstruction or gangrene; K20.90 Esophagitis, unspecified without bleeding; K44.9 Diaphragmatic hernia without obstruction or gangrene; I10 Essential (primary) hypertension; G47.33 Obstructive sleep apnea (adult) (pediatric); K21.9 Gastro-esophageal reflux disease without esophagitis; E66.01 Morbid (severe) obesity due to excess calories; Q05.9 Spina bifida, unspecified; M41.9 Scoliosis, unspecified; Z68.43 Body mass index [BMI] 50.0-59.9, adult; Z90.49 Acquired absence of other specified parts of digestive tract; Z79.899 Other long term (current) drug therapy; Z80.0 Family history of malignant neoplasm of digestive organs; Z88.2 Allergy status to sulfonamides; Z98.890 Other specified postprocedural states; Z86.010 Personal history of colon polyps
CPT/HCPCS: 43239; 49655; 84703; 85025; 87081; C1781; 36415; 88305

== ENCOUNTER 2021-04-29 05:32 | Outpatient (CLI) | payer OTHER ==
[~2021-04-29] VITALS: Ht 162.6 cm; Wt 113.2 kg
== END 2021-04-29 11:36 | disposition home or self-care (01) ==
LOC: PREOP 05:32
PROVIDERS: ATTEND Obstetrics & Gynecology
DX: Z01.818 Encounter for other preprocedural examination (principal)

== ENCOUNTER 2021-05-06 07:54 | Day surgery (SDC) | payer OTHER ==
[2021-05-06] VITALS (9 sets, daily range): BP systolic 137–147; BP diastolic 81–97
[~2021-05-06] VITALS: Ht 162.6 cm; Wt 113.2 kg
[~2021-05-06 07:54] MED LIST changes: -PHEN30CA2 PO; +PHEN30CA21 PO
[2021-05-06] MEDS ORDERED: BUPIVACAINE 0.25% 30 ML (SENSORCAINE) VIAL ONE (08:05)
[2021-05-06] MEDS ORDERED: metroNIDAZOLE 500MG/100ML IVPB 100 ML IV ONE (08:15)
[2021-05-06] MEDS ORDERED: ceFAZolin 2 GM IV Premixed 50 ML IV ONE (08:15)
[2021-05-06] MEDS: LACTATED RINGERS 1,000 ML IV PRN ×2 (08:33→10:28)
[2021-05-06 08:34] LABS: BASOPHILS # (AUTO) 0.1 10^3/uL (0.0-0.1); BASOPHILS % (AUTO) 1 % (0-10); EOSINOPHILS # (AUTO) 0.1 10^3/uL (0.0-0.3); EOSINOPHILS % (AUTO) 1 % (0-10); HEMATOCRIT 44 % (35-52); HEMOGLOBIN 14.5 g/dL (11.5-16.0); LYMPHOCYTES # (AUTO) 2.1 10^3/uL (1.0-4.0); LYMPHOCYTES % (AUTO) 18 % (12-44); MEAN CORPUSCULAR HEMOGLOBIN 26 pg (25-34); MEAN CORPUSCULAR HGB CONC 33 g/dL (32-36); MEAN CORPUSCULAR VOLUME 78 fL (80-99); MEAN PLATELET VOLUME 10.8 fL (9.0-12.2); MONOCYTES # (AUTO) 0.6 10^3/uL (0.0-1.0); MONOCYTES % (AUTO) 5 % (0-12); NEUTROPHILS % (AUTO) 75 % (42-75); PLATELET COUNT 270 10^3/uL (130-400)
[2021-05-06] MEDS ORDERED: GLYCOPYRROLATE 0.2 MG/ML (ROBINUL) 2 ML VIAL ONE (09:09)
[2021-05-06] MEDS ORDERED: MIDAZOLAM 2 MG/2 ML (VERSED) VIAL ONE (09:09)
[2021-05-06] MEDS ORDERED: NEOSTIGMINE 3 MG/3 ML VIAL ONE (09:09)
[2021-05-06] MEDS ORDERED: ONDANSETRON 4 MG/2 ML (SDV) Z0FRAN ONE (09:09)
[2021-05-06] MEDS ORDERED: proPOfol 200 MG/20 ML (DIPRIVAN) VIAL IV ONE (09:09)
[2021-05-06] MEDS ORDERED: fentaNYL INJ 100 MCG/2 ML AMP ONE (09:09)
[2021-05-06] MEDS ORDERED: LIDOCAINE PF 2% 5 ML (XYLOCAINE) VIAL ONE (09:09)
[2021-05-06] MEDS ORDERED: ROCURONIUM 50 MG/5 ML (ZEMURON) VIAL IV ONE ×2 (09:10→10:34)
--- NOTE | 2021-05-06 09:18 | Progress Note-Pre Operative ---
Pre-Operative Progress Note H&P Reviewed The H&P was reviewed, patient examined and no changes noted. Date Seen by Provider: May 06, 2021 Time Seen by Provider: 08:45 Date H&P Reviewed: May 06, 2021 Time H&P Reviewed: 08:45 Pre-Operative Diagnosis: AUB, Claudette, ANNETTE ANDERSON DO May 06, 2021 09:18
--- NOTE | 2021-05-06 09:24 | Discharge Inst-Women's Service ---
Discharge Inst-Women's Serv Depart Medication/Instructions New, Converted or Re-Newed RX: Transmitted to Pharmacy Final Diagnosis POD 0 RATLH Problems Reviewed?: Yes Consults/Follow Up Additional Follow Up: Yes Orders/Referrals Dr. Hartman or Radha in 7-10 days and in 8 weeks Activity Activity: Activity as Tolerated Driving Instructions: No Driving for 1 Week NO SMOKING: NO SMOKING Nothing Inside Vagina: No Douching, No Johnston, No Tampons Diet Discharge Diet: No Restrictions Symptoms to Report to : Bleeding Excessive, Pain Increased, Fever Over 101 Degrees F, Vaginal Bleeding Increase, Questions/Concerns For Any Problems or Questions: Contact Your Physician Skin/Wound Care Infection Signs and Symptoms: Increased Redness, Foul Odor of Wound, Increased Drainage, Skin Itchy or Has a Rash, Increased Swelling, Temperature Above 101 F Operative Area Clean and Dry: Keep Incision Clean/Dry Stitches/Charlie/Dermabond: Dermabond, Care of Stitches Bathing Instructions: ANNETTE Murrieta DO May 06, 2021 09:24
[2021-05-06] MEDS ORDERED: HYDR-34 PO (09:25)
[2021-05-06] MEDS ORDERED: SMT80CT PO (09:25)
[2021-05-06] MEDS ORDERED: DOCU100C37 PO (09:25)
[2021-05-06] MEDS ORDERED: IBUP-844 PO (09:25)
[2021-05-06] MEDS ORDERED: ANTACID SUSP 30 ML UDC (MYLANTA) PO PRN (09:30)
[2021-05-06] MEDS ORDERED: ZOLPIDEM 5 MG (AMBIEN) TAB PO PRN (09:30)
[2021-05-06] MEDS ORDERED: HYDROcodone/APAP 7.5 MG/325 MG (LORTAB, LORCET PLUS) TABLET PO PRN (09:30)
[2021-05-06] MEDS ORDERED: ONDANSETRON 4 MG/2 ML (SDV) Z0FRAN IV PRN (09:30)
[2021-05-06] MEDS ORDERED: NALOXONE 0.4 MG/ML 1 ML (NARCAN) VIAL IV PRN (09:30)
[2021-05-06] MEDS ORDERED: SIMETHICONE 80 MG (MYLICON) CHEW PO PRN (09:30)
[2021-05-06] MEDS ORDERED: LACTATED RINGERS 1,000 ML IV SCH (09:30)
[2021-05-06] MEDS ORDERED: CHLORASEPTIC LOZENGE MM PRN (09:30)
[2021-05-06] MEDS ORDERED: DOCUSATE SODIUM 100 MG (COLACE) CAP PO PRN (09:30)
[2021-05-06] MEDS ORDERED: KETOROLAC 30 MG/ML VIAL IVP PRN (09:30)
[2021-05-06] MEDS ORDERED: HYDROmorphone 2 MG/ML VIAL (DILAUDID) ONE (10:47)
[2021-05-06] MEDS ORDERED: SEVOFLURANE (ULTANE) 15 ML INHAL SOLN ONE (11:03)
[2021-05-06] MEDS ORDERED: morphine INJ 10 MG/ML 1ML (SYR OR VIAL) IVP ONE (11:30)
[2021-05-06] MEDS ORDERED: HYDROmorphone 2 MG/ML VIAL (DILAUDID) IV ONE (11:30)
[2021-05-06] MEDS ORDERED: ONDANSETRON 4 MG/2 ML (SDV) Z0FRAN IVP PRN (11:30)
[2021-05-06] MEDS ORDERED: KETOROLAC 30 MG/ML VIAL ONE (11:57)
--- NOTE | 2021-05-06 12:16 | Anesthesia-General Post-Op ---
General Patient Condition Mental Status/LOC: Same as Preop Cardiovascular: Satisfactory Nausea/Vomiting: Absent Respiratory: Satisfactory Pain: Controlled Complications: Absent Post Op Complications Complications None Follow Up Care/Instructions Patient Instructions None needed. Anesthesia/Patient Condition Patient Condition Patient was just transferred to the floor and she was doing well, no complaints, stable vital signs, no apparent adverse anesthesia problems. MRAY ALCARAZ DO May 06, 2021 12:15
--- NOTE | 2021-05-06 14:25 | OPERATIVE REPORT ---
DATE OF SERVICE: PREOPERATIVE DIAGNOSES: 1. A 35-year-old female with abnormal uterine bleeding. 2. Chronic pelvic pain. 3. Menorrhagia. POSTOPERATIVE DIAGNOSES: 1. A 35-year-old female with abnormal uterine bleeding. 2. Chronic pelvic pain. 3. Menorrhagia. PROCEDURE: Robotic-assisted total laparoscopic hysterectomy with bilateral salpingectomy. SURGEON: Blair Liu DO DRIVER STARTING GATE: Radha Durand DNP, was necessary for manipulation and retraction throughout the procedure. ANESTHESIA: General endotracheal. ESTIMATED BLOOD LOSS: Minimal. URINE OUTPUT: 75 mL, cloudy at the end of procedure. FLUIDS: 1800 mL lactated Ringer's solution. FINDINGS: A hyperemic appearing uterus, grossly normal bilateral fallopian tubes with a left distal ampullary cyst of the left fallopian tube, grossly normal appearing bilateral ovaries, extensive upper abdominal adhesions. SPECIMEN SENT: Uterus, bilateral fallopian tubes. INDICATIONS FOR PROCEDURE: This 35-year-old female is a patient who had sought care in my office earlier this year for issues with chronic bloating, discomfort that seems to surround her. She underwent D and C earlier this year without any improvement in her symptoms. She also did Depo-Provera injections, which did not alleviate her symptoms either. In the past, she had been on progestin-containing IUD and OCPs in the past without any improvement in her symptoms. Due to ongoing frustration and concern as well as being a debilitated part of her life, the patient wished to move forward with more definitive measures. We discussed in the office of a hysterectomy. Risks of procedure were discussed with the patient in detail including risk of bleeding, infection, damage to surrounding structures including, but not limited to bowel, bladder, ureter, kidneys, possible need for operation, postoperative complications that could occur, risk from anesthesia, hospital stay and even . After everything was discussed with the patient in detail, consent was obtained and the patient was taken to the operating room. OPERATIVE REPORT IN DETAIL: Once in the operating room, general anesthesia was found to be adequate. She was placed in dorsal lithotomy position, prepped and draped in normal sterile fashion. Timeout was performed and a Cardenas catheter was placed using sterile technique. A weighted speculum inserted to the patient's vagina. Right angle retractor was used to visualize the cervix, which was grasped at 12 o'clock position using a long Allis clamp. I then gently sound the uterine cavity, depth was found to be 8 cm. I selected an 8 cm Rufina uterine manipulator and 3.5 cm colpotomy ring. I advanced the manipulator into the uterus deploying the balloon and the colpotomy ring was advanced around the vaginal fornix. I removed all instruments from the patient's vagina, performed change of gloves obtained my attention to the abdomen, where subcostally one single breath at the midclavicular line on the left side. I injected a Veress needle until intraperitoneal placement was confirmed using saline drop test. An opening pressure using CO2 gas was notified of 7 mm. I proceeded with insufflation using CO2 gas and maximum pressure of 15 mmHg, at which point I made a supraumbilical incision after infiltrating the skin with 0.25% Marcaine. This is an 8 mm incision and an 8 mm trocar was placed through the incision until intraperitoneal placement was again confirmed using the laparoscope. There was no evidence of damage from entry site of the trocar. A brief scan of the upper abdominal anatomy shows extensive blanket incurred and adhesions, I am able to find the puncture wound from the Veress. There is no evidence of damage upon the Veress entry site and the Veress was then removed. Insufflation was maintained through the umbilical trocar site. I then placed two lateral trocars using both 8 mm trocars approximately 8 cm lateral to my supraumbilical trocar site. Once both these trocars were in place, I bring the [employer] Stacie robot and docked in appropriate fashion. I had the patient placed in steep Trendelenburg. Once the robot was docked, I placed the SynchroSeal device left hand and monopolar anika in the right hand and took my place at the operative console. I performed the following dissection bilaterally starting at the uteroovarian ligament. I sealed and transected using the SynchroSeal. I then created a window in the mesosalpinx, take this down the mesosalpinx amputating the fallopian tube from its surrounding blood supply using the seal. I then grasped the round ligament, which I sealed and transected using the SynchroSeal device, was then grasped the entire broad ligament. Which I sealed and transected using the sealed down to the level of the lower uterine segment, at which point I the anterior and posterior leaflets of the broad ligament. Anterior leaflet was taken around to the anterior vaginal fornix and posterior leaflets was taken around the posterior vaginal fornix. This allows me to skeletonize the uterine vessels laterally, which I sealed and transect using the SynchroSeal device. I then created a colpotomy at 12 o'clock position using monopolar anika and took this circumferentially around the vaginal fornix amputating the cervix away from the vagina. The entire specimen was then removed through the vagina. I then closed the lateral vaginal apices of the vaginal cuff using 2-0 Vicryl suture in a [id number] fashion couple colposuspending into the uterosacral ligaments. I closed the remainder of the vaginal cuff using 2-0 V-Loc in a running fashion, after which no active been noted from any of my dissection planes. I then undocked the da Stacie robot, proceeded with remainder of the case laparoscopically. I copiously irrigated the pelvis using normal saline. Once again, there was no active bleeding noted from any of my dissection planes. I placed Surgiflo hemostatic agent over all my planes of dissection to ensure excellent postoperative hemostasis. I then had the patient taken out of steep Trendelenburg where I released insufflation and to introduce 10 mL of 0.25% Marcaine into peritoneal cavity for postoperative pain management. The lateral trocars were removed under direct visualization of the laparoscope. The infraumbilical trocar was left in place to release insufflation. I then removed this trocar as well. The skin reapproximated using 4-0 Monocryl in interrupted subcuticular stitches. Dermabond was applied to the incisions and Band-Aids were placed over the incisions as well. Cardenas catheter was left in place. Lap and sponge counts were correct at the end of the procedure. Instrument counts correct as well. Two grams of Ancef 500 mg of Flagyl were given preoperatively for infection prophylaxis. The patient tolerated the procedure well and sent to recovery area in stable condition. Job ID: [id number] DocumentID: [id number] Dictated Date: 05/06/2021 11:30:35 Process Control Specialist Date: 05/06/2021 14:24:46 Dictated By: BLAIR LIU DO
[2021-05-11] MEDS ORDERED: IBUPROFEN 600 MG (MOTRIN) TAB PO SCH (09:30)
== END 2021-05-06 17:40 | disposition home or self-care (01) ==
LOC: SDC 07:54 → WS 12:45 → SDC 17:40
PROVIDERS: ATTEND Obstetrics & Gynecology
DX: D25.1 Intramural leiomyoma of uterus (principal); D25.2 Subserosal leiomyoma of uterus; D28.2 Benign neoplasm of uterine tubes and ligaments; N88.8 Other specified noninflammatory disorders of cervix uteri; N83.8 Other noninflammatory disorders of ovary, fallopian tube and broad ligament; K66.0 Peritoneal adhesions (postprocedural) (postinfection); I10 Essential (primary) hypertension; K21.9 Gastro-esophageal reflux disease without esophagitis; G47.33 Obstructive sleep apnea (adult) (pediatric); F41.9 Anxiety disorder, unspecified; G89.29 Other chronic pain; M54.50 Low back pain, unspecified; Z98.890 Other specified postprocedural states; Z79.899 Other long term (current) drug therapy
CPT/HCPCS: 36415; 84703; 85025; 86850; 86870; 86900; 86901; 87081

== ENCOUNTER → 2021-11-21 | Outpatient (CLI) | payer OTHER ==
[~2021-11-21] MED LIST changes: +DOCU100C37 PO; +HYDR-34 PO; +IBUP-844 PO; +SMT80CT PO
--- NOTE | 2021-11-21 13:51 | Diagnostic Imaging Report ---
PROCEDURE: CT abdomen and pelvis without contrast. TECHNIQUE: Multiple contiguous axial images were obtained through the abdomen and pelvis without the use of intravenous contrast. Auto Exposure Controls were utilized during the CT exam to meet ALARA standards for radiation dose reduction. INDICATION: Periumbilical pain. Patient has had a prior umbilical hernia repair and a ventral hernia repair. COMPARISON: No prior studies are available for comparison. FINDINGS: The lung bases are clear. The liver is enlarged measuring approximately 22.4 cm cephalocaudal. No liver mass is detected. The gallbladder is surgically absent. No biliary ductal dilatation is seen. The pancreas is unremarkable. The spleen is upper limits of normal in size. No adrenal mass is detected. Kidneys are unremarkable. No calculi are detected. There is no hydronephrosis. Aorta is nonaneurysmal. There is some diastases of the rectus abdominis musculature. There appears to be a right paramidline ventral hernia just cephalad to the umbilicus. This does contain small bowel loops. No definite evidence of strangulation is seen. There is no bowel obstruction. No free fluid or fluid collection is seen. The bladder is unremarkable. The uterus appears to be surgically absent. IMPRESSION: Supraumbilical right paramidline ventral hernia containing small bowel loops. No strangulation or bowel obstruction is identified. No acute feature is detected. Dictated by: Dictated on workstation # [id number]
== END ==
LOC: RAD 13:15
PROVIDERS: ATTEND Surgery
DX: K43.9 Ventral hernia without obstruction or gangrene (principal)
CPT/HCPCS: 74176

== ENCOUNTER 2022-08-27 05:31 | Outpatient (CLI) | payer OTHER ==
[~2022-08-27] VITALS: Ht 162.6 cm; Wt 115.0 kg
[2022-08-28] MEDS ORDERED: POTA99CA PO (09:36)
[2022-08-28] MEDS ORDERED: PHEN-483 PO (09:36)
[2022-08-28] MEDS ORDERED: TOPI50TA13 PO (09:36)
== END 2022-08-28 09:44 | disposition home or self-care (01) ==
LOC: PREOP 05:31
PROVIDERS: ATTEND Surgery
DX: Z01.818 Encounter for other preprocedural examination (principal)

== ENCOUNTER → 2022-09-03 | Day surgery (SDC) | payer OTHER ==
[~2022-09-03] VITALS: Ht 162.5 cm; Wt 115.0 kg
[~2022-09-03] MED LIST changes: +LACTATED RINGERS 1,000 ML IV PRN; +PHEN-483 PO; +POTA99CA PO; +TOPI50TA13 PO; +ceFAZolin INJECTION 2,000 MG in NS (IVPB) 50 ML IV ONE
[2022-09-03 10:55] VITALS: BP 136/92
== END | disposition home or self-care (01) ==
LOC: SDC 10:44
PROVIDERS: ATTEND Surgery
DX: K43.0 Incisional hernia with obstruction, without gangrene (principal); Z53.9 Procedure and treatment not carried out, unspecified reason
CPT/HCPCS: 84703; 87081

== ENCOUNTER 2022-09-08 05:34 | Outpatient (CLI) | payer OTHER ==
[~2022-09-08 05:34] MED LIST changes: -LACTATED RINGERS 1,000 ML IV PRN; +TOPI-241 PO; -TOPI50TA13 PO; -ceFAZolin INJECTION 2,000 MG in NS (IVPB) 50 ML IV ONE
== END 2022-09-09 13:35 | disposition home or self-care (01) ==
LOC: PREOP 05:34
PROVIDERS: ATTEND Surgery
DX: Z01.818 Encounter for other preprocedural examination (principal)

== ENCOUNTER 2022-09-10 07:51 | Day surgery (SDC) | payer OTHER ==
[~2022-09-10] VITALS: Ht 162 cm; Wt 115.0 kg
[2022-09-10] VITALS (12 sets, daily range): BP systolic 115–142; BP diastolic 58–90
[2022-09-10] MEDS ORDERED: ceFAZolin INJECTION 3,000 MG in NS (IVPB) 100 ML IV ONE (08:15)
[2022-09-10] MEDS: LACTATED RINGERS 1,000 ML IV PRN ×2 (08:21→12:05)
[2022-09-10] MEDS ORDERED: ONDANSETRON 4 MG/2 ML (SDV) Z0FRAN ONE (08:24)
[2022-09-10] MEDS ORDERED: LIDOCAINE PF 2% 5 ML (XYLOCAINE) VIAL ONE (08:24)
[2022-09-10] MEDS ORDERED: GLYCOPYRROLATE 0.2 MG/ML (ROBINUL) 2 ML VIAL ONE (08:24)
[2022-09-10] MEDS ORDERED: fentaNYL INJ 100 MCG/2 ML AMP ONE (08:24)
[2022-09-10] MEDS ORDERED: proPOfol 200 MG/20 ML (DIPRIVAN) VIAL IV ONE (08:24)
[2022-09-10] MEDS ORDERED: ROCURONIUM 50 MG/5 ML (ZEMURON) VIAL IV ONE ×3 (08:25→12:00)
[2022-09-10] MEDS ORDERED: MIDAZOLAM 2 MG/2 ML (VERSED) VIAL ONE (08:25)
[2022-09-10] MEDS ORDERED: NEOSTIGMINE (BLOXIVERZ ) 1 MG/1ML 10 ML VIAL ONE (08:25)
--- NOTE | 2022-09-10 09:01 | Progress Note-Pre Operative ---
Pre-Operative Progress Note Date of Available H&P: Aug 14, 2022 Date H&P Reviewed: Sep 10, 2022 Time H&P Reviewed: 08:58 History & Physical: H&P Reviewed, Patient Examed, No changes noted Pre-Operative Diagnosis: Incarcerated Ventral/incisional hernia BELEN VARELA DO Sep 10, 2022 09:01
[2022-09-10] MEDS ORDERED: HYDROmorphone 2 MG/ML VIAL (DILAUDID) ONE (09:48)
[2022-09-10] MEDS ORDERED: BUP/EPI 0.5% 1:200,000 (SENSORCAINE) 30 ML VIAL IJ ONE (10:26)
[2022-09-10] MEDS ORDERED: ceFAZolin INJECTION 3,000 MG in NS (IVPB) 100 ML IV NR (13:00)
--- NOTE | 2022-09-10 13:38 | Progress Note-Post Operative ---
Post-Operative Progess Note Surgeon (s)/Plant Utilities Engineer (s) Surgeon BELEN VARELA DO Plant Utilities Engineer: Radha Pre-Operative Diagnosis Incarcerated Ventral/incisional hernia Post-Operative Diagnosis Same - Recurrent appx 12cm defect Procedure & Operative Findings Date of Procedure 09/10/22 Procedure Performed/Findings Laparoscopic Robotic Inc/Ventral herniarraphy with mesh placement [place] Retrorectus Muscle flap Anesthesia Type GET Estimated Blood Loss Estimated blood loss (mL): appx 50ml Specimens/Packing Specimens Removed none BELEN VARELA DO Sep 10, 2022 13:37
[2022-09-10] MEDS ORDERED: ISOFLURANE (FORANE) 15 ML/15 MIN INHALATION ONE (14:06)
[2022-09-10] MEDS ORDERED: morphine INJ 10 MG/ML 1ML (SYR OR VIAL) IVP ONE (14:15)
[2022-09-10] MEDS ORDERED: HYDROmorphone 2 MG/ML VIAL (DILAUDID) IV ONE (14:15)
[2022-09-10] MEDS ORDERED: ONDANSETRON 4 MG/2 ML (SDV) Z0FRAN IVP PRN ×2 (14:15→16:15)
[2022-09-10] MEDS ORDERED: LACTATED RINGERS 1,000 ML IV SCH (16:15)
[2022-09-10] MEDS ORDERED: morphine INJ 4 MG/ML 1 ML (VIAL/SYRINGE) IVP PRN (16:15)
[2022-09-10] MEDS: KETOROLAC 30 MG/ML VIAL IVP PRN ×2 (16:55→23:09)
[2022-09-10] MEDS: ceFAZolin INJECTION 2,000 MG in NS (IVPB) 50 ML IV SCH (21:03)
[2022-09-11 03:14] VITALS: BP 121/77
[2022-09-11] MEDS: KETOROLAC 30 MG/ML VIAL IVP PRN (05:32)
[2022-09-11] MEDS: ceFAZolin INJECTION 2,000 MG in NS (IVPB) 50 ML IV SCH (05:32)
[2022-09-11 07:22] VITALS: BP 87/50
--- NOTE | 2022-09-11 07:56 | Progress Note - Surgery ---
KAVON SILVERIO 09/11/22 0756: Subjective Date Seen by a Provider: Sep 11, 2022 Time Seen by a Provider: 07:25 Subjective/Events-last exam Ev was awake and sitting at a slight incline, she was very pleasant and reported having no pain but that she felt stiff and rated it as a 2/10. She reports being able to get up and walk around to use the restroom: urinating but still without any BM or flatualance that she can recall. She denies, chest pain, SOB, n/v/d, chills, fever, or lightheadedness. Pt appears ready to be discharged. Review of Systems General: No Chills, No Night Sweats; Appetite (still liquid diet) HEENT: No Head Aches, No Visual Changes Pulmonary: No Dyspnea, No Cough, No Pleuritic Chest Pain Cardiovascular: No: Chest Pain, Palpitations, Lt Headedness Gastrointestinal: Abdominal Pain (described as stiffness); No: Nausea, Vomiting Genitourinary: No Dysuria, No Incontinence, No Retention Musculoskeletal: No: other, neck pain, shoulder pain, arm pain, back pain, hand pain, leg pain, foot pain Neurological: No: Change in speech, Confusion Objective Exam Vital Signs Date Time Temp Pulse Resp B/P (MAP) Pulse Ox O2 Delivery O2 Flow Rate FiO2 09/11/22 07:22 36.8 87 20 87/50 (62) 96 Room Air 09/11/22 03:14 36.4 87 18 121/77 (92) 97 Room Air 09/10/22 23:10 37.2 93 20 117/76 (90) 97 Room Air 09/10/22 21:22 Room Air 09/10/22 19:46 36.8 99 18 115/58 (77) 95 Room Air 09/10/22 17:51 36.8 99 18 122/63 (82) 96 Room Air 09/10/22 17:10 37.2 107 18 128/67 97 Room Air 09/10/22 14:50 37.5 90 20 129/65 (86) 91 Room Air 09/10/22 14:50 97 Room Air 2.00 09/10/22 14:45 Room Air 09/10/22 14:40 37.2 18 128/67 (87) 97 Room Air 09/10/22 14:35 Room Air 09/10/22 14:30 19 120/69 (86) 98 OxyMask 2.00 09/10/22 14:20 OxyMask 2.00 09/10/22 14:20 18 126/79 (95) 98 OxyMask 2.00 09/10/22 14:10 17 118/68 (85) 98 OxyMask 4.00 09/10/22 14:05 OxyMask 6.00 09/10/22 14:00 18 125/65 (85) 98 OxyMask 6.00 09/10/22 13:50 OxyMask 8.00 09/10/22 13:50 37.9 20 117/71 (86) 98 OxyMask 8.00 09/10/22 08:15 36.2 107 20 142/90 (107) 94 Room Air I & O 09/11/22 07:00 Intake Total 2660 ml Output Total 925 ml Balance 1735 ml Capillary Refill : General Appearance: No Apparent Distress, Obese HEENT: PERRL/EOMI Neck: Full Range of Motion Respiratory: Chest Non Tender, Lungs Clear, No Accessory Muscle Use, No Respiratory Distress Cardiovascular: Regular Rate, Rhythm, No Edema, No Murmur Gastrointestinal: soft; No guarding; tenderness Extremity: Normal Capillary Refill, Normal Inspection, Non Tender, No Calf Tenderness, No Pedal Edema Neurologic/Psychiatric: Alert, Oriented x3, No Motor/Sensory Deficits, Normal Mood/Affect Skin: Normal Color, Warm/Dry, Other (skin surrounding bandages of incisions appear c/d/i ) Results Lab Microbiology 09/10/22 MRSA Screen - Final, Complete MRSA not isolated Assessment/Plan Assessment/Plan Assessment/Plan S/P Laparoscopic Robotic Inc/Ventral herniarraphy with mesh placement S/P [place] Retrorectus Muscle flap * D/C patient with education on no strenuous activity * oral pain management and muscle relaxants PRN * normal diet as tolerated * f/u in two weeks or sooner if any complications arise BELEN LY DO 09/11/22 1254: Subjective Time Seen by a Provider: 11:19 Subjective/Events-last exam Pt seen and examined, stated she started passing gas. Pain is controlled and she is tolerating diet. She would like to go home. Review of Systems General: No Chills, No Night Sweats Pulmonary: No Dyspnea, No Cough Cardiovascular: No: Chest Pain, Palpitations Gastrointestinal: Abdominal Pain (described as stiffness); No: Nausea, Vomiting Objective Exam General Appearance: No Apparent Distress, Obese HEENT: PERRL/EOMI Respiratory: Chest Non Tender, Lungs Clear, Normal Breath Sounds, No Accessory Muscle Use, No Respiratory Distress Cardiovascular: Regular Rate, Rhythm, No Murmur Gastrointestinal: soft; No guarding; tenderness Extremity: No Calf Tenderness Neurologic/Psychiatric: Alert, Oriented x3 Skin: Other (skin surrounding bandages of incisions appear c/d/i ) Assessment/Plan Assessment/Plan Assessment/Plan S/P Laparoscopic Robotic Inc/Ventral herniarraphy with mesh placement S/P [place] Retrorectus Muscle flap * D/C patient with education on no strenuous activity * oral pain management and muscle relaxants PRN * normal diet as tolerated * f/u in one week or sooner if any complications arise Supervisory-Addendum Brief Verification & Attestation Participated in pt care: history, MDM, physical Personally performed: exam, history, MDM, supervision of care Care discussed with: Medical Student Procedures: n/a Verification and Attestation of Medical Student E/M Service A medical student performed and documented this service. I then reviewed and verified all information documented by the medical student and made modifications to such information, when appropriate. I personally performed a physical exam, medical decision making and then discussed any differences between the notes and made revisions as necessary to create one note. Belen Ly , 09/11/22 , 12:53 KAVON SILVERIO Sep 11, 2022 07:56 BELEN LY DO Sep 11, 2022 12:54
--- NOTE | 2022-09-11 08:08 | Anesthesia-General Post-Op ---
General Patient Condition Mental Status/LOC: Same as Preop Cardiovascular: Satisfactory Nausea/Vomiting: Absent Respiratory: Satisfactory Pain: Controlled Complications: Absent Post Op Complications Complications None Follow Up Care/Instructions Patient Instructions None needed. Anesthesia/Patient Condition Patient Condition Patient is doing well, no complaints, stable vital signs, no apparent adverse anesthesia problems. No complications reported per nursing. LINDA DELANEY CRNA Sep 11, 2022 08:08
[2022-09-11] MEDS: PANTOPRAZOLE 40 MG (PROTONIX) VIAL IVP SCH ×3 (08:45→10:45)
[2022-09-11 12:39] VITALS: BP 113/72
[2022-09-11] MEDS ORDERED: ACHYD1T PO (12:55)
--- NOTE | 2022-09-11 12:58 | Discharge Inst-Surgical ---
Discharge Inst-Surgical Depart Medication/Instructions New, Converted or Re-Newed RX: Transmitted to Pharmacy Patient Instructions Follow up Appt: Make appointment for 1 week. [phone] Instructions: No lifting greater than 20 pounds. No strenuous activity. May shower in 24 hours, no tub bath or soaking. Use incentive spirometer at home as directed. No Smoking Skin/Wound Care: May remove bandages in am. You need to leave the Dermabond on incision it will fall off on it's own. Symptoms to Report: Appetite Changes, Extremity Discoloration, Numbness/Tingling, Swelling Increased, Bleeding Excessive, Eyesight Changes, Pain Increased, Urine Color Change, Constipation(Persistent), Fever over 101 degree F, Pain/Pressure in chest, Urinating Difficulty, Cough Up/Vomit Blood, Heart Beat Irreg/Pounding, Pain/Pressure in jaw, Cramps in feet or legs, Lightheadedness, Pain/Pressure in shoulder, Diarrhea(Persistent), Memory Changes Suddenly, Questions/Concerns, Weight gain consecutive days, Dizziness/Fainting, Nausea/Vomiting, Shortness of Breath, Weight gain over 2 pounds If questions or concerns contact your physician Or seek help at emergency department. Activity Activity as Tolerated: Yes Activity Instructions: Avoid Stress to Incision Driving Instructions: No Driving/Refer to Dr. Kirk Discharge Diet: No Restrictions Diet After 24 Hours: Clear Liquid if Nauseous If Any Problems/Questions/Issu: Contact Your Physician, Go to Emergency Room Skin/Wound Care Infection Signs and Symptoms: Increased Redness, Foul Odor of Wound, Increased Drainage, Skin Itchy or Has a Rash, Increased Swelling, Temperature Above 101 F Wound Care Comment: Do not reach up for very tall things, do not bend over or twist too much. Wear the abdominal binder all day except to shower for the next month Bathing Instructions: Shower Stitches/[place]/Dermabond Dis: BELEN Reynolds DO Sep 11, 2022 12:58
--- NOTE | 2022-09-11 13:33 | Operative Report ---
Operative Report Date of Procedure/Surgery Sep 10, 2022 Surgeon (s) BELEN VARELA DO Advanced Seal Delivery System (s): Radha Post-Operative Diagnosis Incarcerated incisional/Ventral hernia - Recurrent appx 12cm defect Procedure Performed 1) Robotic Transabdominal Retrorectus [place] Stoppa Herniarraphy with mesh placement 2) Myocutaneous abdominal muscle flap Description of Procedure Anesthesia Type: General Estimated blood loss (mL): appx 50ml Specimen(s) collected/removed none Description of the Procedure After informed consent was obtained, the patient was brought to the operating room. She was placed on the table in supine position. She was then sterilely prepped and draped in normal fashion. The bed was flexed just a little bit. We then used an ultrasound prior to prepping to eduardo the left rectus muscle and the linea alba, then started in the left upper quadrant, made an incision in the left upper quadrant with a #11 blade and dissected down to the fascia and then able to get into the abdomen. I then placed two more 8mm robotic ports as far lateral outside the semi-lunaris line to get into the abdomen. The robot was then docked and began by taking down all of the adhesions and contents out of the hernia defect. Laparoscopic instruments were inserted under direct visualization, the Mimeoe grasper in the left hand and scissors in the right. I then proceeded to the robotic console. Used the scissors to dissect into the Left retromuscular space; superiorly to the costal margin and inferiorly below the arcuate line into the preperitoneal plane contiguous with the space of Retzius for at least 8 cm caudad and cephalad to the defect. Dissected free superiorly and inferiorly to help with a tension-free closure creating these muscle flaps allowing them to relax. The lateral extent of this dissection is the linea semilunaris, which is marked by laterally perforating neurovascular bundles that should be maintained. As in the open technique, there is at least one large floorhand medially in the superior third of the dissection that needs to be sacrificed, and the inferior one-third dissection is also notable for exposure of the inferior epigastric vessels coursing cephalad. Then started to dissect across the midline in the upper abdomen. The medial edge of the posterior rectus sheath is then divided before it inserts into the linea alba, allowing entrance into the preperitoneal fat plane beneath the linea alba. This dissection is most easily initiated well above and below the midline fascial defect to take advantage of the robust preperitoneal fat and associated peritoneum in virgin areas of the midline. As I worked towards the umbilicus I encountered a large incarcerated incisional hernia. I was attempting to stay in the preperitoneal space, but the tissue was so thin I got back into the abdominal pace. Pictures were taken. Once I was able to get down and take everything down, I then decided to perform the right sided muscular flap again going just lateral to the linea alba about 1 cm getting into the right posterior rectus sheath extending this superiorly and inferiorly starting inferiorly and working my way superiorly to create this muscle flap on the right to again give a space to completely dissect this free. Once I had everything freed up, I then started closing the defect (which measured about 12cm. It closed easiest transversely, using Non-absorbable 0 V-lock suture; running but not tightening it down and then slowly cinching it down like a corset bringing it together. Once this was closed, I then measured the retromuscular space, it measured about 24 x 24 cm. I used a Bard light weight macroporous mesh, cut to fit in there. I then closed the the opening to the retrorectus space on the left side with a 180 day 2-0 V-lock suture; came together nicely. I then closed the hole in the preperitoneum with another 2-0 V-Loc 180-day V. I could see that the macroporous mesh laid out very nicely. I then carefully allowed the pneumoperitoneum to deflate and watched the mesh stayed in position directly filling up the space completely. I pulled out all of the ports and then closed all incisions with 4-0 Monocryl and Dermabond. A dressing was placed. The patient tolerated the procedure. Sponge and needle count correct at the end of the case. Dr. Garcia assisted in this case helping to make incisions, close incisions, identify anatomy, pass suture. Findings of the Procedure as above Allergies and Home Medications Allergies Coded Allergies: Sulfa (Sulfonamide Antibiotics) (Verified Allergy, Mild, SWELLING, 08/28/22) bee pollen (Verified Allergy, Unknown, 08/28/22) Uncoded Allergies: BEE STING (Allergy, Unknown, Itching, 04/29/21) Patient Home Medication List Home Medication List Reviewed: Yes Cholecalciferol (Vitamin D3) (Vitamin D3) 50 Mcg Tablet, 50 MCG PO DAILY, (Reported) Entered as Reported by: CAIT BARRIENTOS on 10/25/20 1052 Docusate Sodium (Docusate Sodium) 100 Mg Capsule, 100 MG PO BID PRN for CONSTIPATION-1ST LINE Prescribed by: ANNETTE LIU on 05/06/21 0925 Duloxetine HCl (Duloxetine HCl) 30 Mg Capsule.dr, 30 MG PO DAILY, (Reported) Entered as Reported by: CAIT BARRIENTOS on 09/15/16 1400 Hydrocodone Bit/Acetaminophen (HYDROcodone/APAP 10/325 TABLET) 1 Ea Tab, 1 TAB PO Q6H Prescribed by: BELEN VARELA on 09/11/22 1256 Metoprolol Succinate (Metoprolol Succinate) 25 Mg Tab.er.24h, 50 MG PO DAILY, (Reported) Entered as Reported by: CAIT BARRIENTOS on 10/25/20 1052 Multivitamin (Multiple Vitamins) 1 Each Tablet, 1 EACH PO DAILY, (Reported) Entered as Reported by: GAVINO CHRISTENSEN on 04/07/19 1429 Omeprazole (Omeprazole) 20 Mg Capsule.dr, 20 MG PO DAILY, (Reported) Entered as Reported by: CAIT BARRIENTOS on 10/25/20 1052 Phentermine HCl (Phentermine HCl) 37.5 Mg Capsule, 37.5 MG PO DAILY, (Reported) Entered as Reported by: EDOUARD PICHARDO on 08/28/22 0936 Potassium Citrate (Potassium) 99 Mg Capsule, 99 MG PO DAILY, (Reported) Entered as Reported by: EDOUARD PICHARDO on 08/28/22 09 Simethicone (Mi-Acid) 80 Mg Tab.chew, 40 MG PO TID PRN for INDIGESTION 2ND LINE Prescribed by: ANNETTE LIU on 05/06/21 09 Topiramate (Topiramate) 50 Mg Tablet, 50 MG PO DAILY, (Reported) Entered as Reported by: EDOUARD PICHARDO on 08/28/2236 BELEN VARELA DO Sep 11, 2022 13:33
== END 2022-09-11 14:16 | disposition home or self-care (01) ==
LOC: SDC 07:51 → EDSTATUS 11:50 → 4TH 14:50 → SDC 09-11 14:16
PROVIDERS: ATTEND Surgery
DX: K43.0 Incisional hernia with obstruction, without gangrene (principal); K21.9 Gastro-esophageal reflux disease without esophagitis; E66.01 Morbid (severe) obesity due to excess calories; Z68.41 Body mass index [BMI] 40.0-44.9, adult; Z79.899 Other long term (current) drug therapy
CPT/HCPCS: 15734; 49618; 87081; C1781